=== PATIENT | female | born 1985 | race Caucasian/White ===

== ENCOUNTER 2019-02-06 13:41 | Emergency (ER) | payer BC ==
[2019-02-06] MEDS ORDERED: 0.9 % SODIUM CHLORIDE 1,000 ML BAG IV ONE (13:53)
--- NOTE | 2019-02-06 14:03 | Emergency Department Record ---
History of Present Illness - General Chief Complaint: Dizziness Stated Complaint: DIZZINESS Time Seen by Provider: 02/06/19 13:52 Source: Patient, Family Mode of Arrival: Ambulatory Limitations: No limitations - History of Present Illness Initial Comments: 33 yo female presents with episodes of feeling lightheaded and dizzy. The episodes occur sporadically. She will get episodes of feeling like she could pass out. The first episode two years ago occurred on the treadmill. She has had episodes at rest and driving. Episodes last seconds to several minutes. No actual syncope. She was seen in Dr Laura's office and Dr Crenshaw's office. No chest pain, no headache, no vision changes, no numbness, tingling, or weakness. No speech changes. No hearing changes. No chronic medical conditions. Today she had a similar feeling prior to a meeting of getting lightheaded and dizzy that lasted longer. She describes the feeling more like she fears passing out than a spinning sensation. MD Complaint: Dizziness, Lightheadedness -: Month(s) (2) Timing: Sudden onset Description: Lightheadedness History of Same: Yes History of Trauma: No Severity: Moderate Improves With: Nothing Worsens With: Movement, Position Associated Symptoms: Denies other symptoms - [place] Coma Scale Eye Response: (4) Open spontaneously Motor Response: (6) Obeys commands Verbal Response: (5) Oriented [place] Total: 15 - Related Data Allergies Allergy/AdvReac Type Severity Reaction Status Date / Time No Known Drug Allergies Allergy Verified 02/06/19 13:57 Review of Systems Constitutional: Denies: Chills, Fever, Malaise, Weakness Eyes: Denies: Eye discharge, Eye pain, Photophobia, Vision change ENT: Denies: Congestion, Throat pain Respiratory: Denies: Cough, Dyspnea Cardiovascular: Denies: Chest pain, Dyspnea on exertion, Edema, Palpitations, Syncope Endocrine: Denies: Fatigue Gastrointestinal: Denies: Abdominal pain, Diarrhea, Nausea, Vomiting Genitourinary: Denies: Dysuria Musculoskeletal: Denies: Myalgia Skin: Denies: Bruising, Change in color, Rash Neurological: Reports: Vertigo. Denies: Abnormal gait, Confusion, Headache, Numbness, Tingling, Tremors, Weakness Psychiatric: Denies: Anxiety Hematological/Lymphatic: Denies: Easy bleeding, Easy bruising Physical Exam - General General Appearance: Alert, Oriented x3, Cooperative, No acute distress Limitations: No limitations - Head Head exam: Atraumatic, Normocephalic, Normal inspection - Eye Eye exam: Normal appearance, PERRL. negative: Conjunctival injection, Scleral icterus - ENT ENT exam: Normal exam, Mucous membranes moist Ear exam: Normal external inspection Nasal Exam: Normal inspection Mouth exam: Normal external inspection Teeth exam: Normal inspection Throat exam: Normal inspection - Neck Neck exam: Normal inspection. negative: Lymphadenopathy, Tenderness, T hyromegaly - Respiratory Respiratory exam: Normal lung sounds bilaterally. negative: Accessory muscle use, Decreased breath sounds, Respiratory distress, Rhonchi, Stridor, Wheezes - Cardiovascular Cardiovascular Exam: Regular rate, Normal rhythm, Normal heart sounds. negative: Diastolic murmur, Irregular rhythm, Systolic murmur Peripheral Pulses: 2+: Radial (R), Radial (L) - GI/Abdominal GI/Abdominal exam: Soft - Rectal Rectal exam: Deferred - exam: Deferred - Extremities Extremities exam: Normal inspection. negative: Calf tenderness, Pedal edema - Back Back exam: Denies: CVA tenderness (R), CVA tenderness (L) - Neurological Neurological exam: Alert, Oriented X3 - Psychiatric Psychiatric exam: Normal affect, Normal mood - Skin Skin exam: Dry, Intact, Normal color, Warm Course - Reevaluation(s) Reevaluation #1: EKG #1: 13:53 Rate: 91 Rhythm: sinus Hayden: normal Intervals: normal ST segments: normal RSR' noted. Likely normal variant. No ST elevation or upright T waves in V1-V3 Prior: none The orthostatic vitals were reviewed No orthostasis EMR reviewed. BP on 01/25/19 was 132/82 02/06/19 14:34 No acute changes on the CBC or CMP The HCG is negative Magnesium is normal 02/06/19 16:30 The UA is negative The ECHO was performed No acute process or abnormality We discussed the results of the tests and questions were answered at the time of discharge. The patient is doing well and is comfortable with DC. DC vitals were reviewed. We discussed at length reasons to immediately return to the ED as well as close follow up. The patient will call the PCP for close follow up of this ED visit to review this visit and the tests performed Medical Decision Making - Lab Data Result diagrams: 02/06/19 14:05 02/06/19 14:05 Disposition Disposition: Discharge Clinical Impression: Near syncope Disposition: Home, Self-Care Condition: (1) Good Instructions: Dizziness (ED) Additional Instructions: Call your doctor for the next available follow up appointment Review this ER visit and the tests performed with your family doctor Return to the ER for a recheck if worse, any new concerns or questions Avoid the hot yoga and any intense work outs until seen by Dr Lal of Cardiology Referrals: CHASE LAL M.D. [MEDICAL DOCTOR] - Forms: Patient Portal Access Time of Disposition: 16:37 Quality - Quality Measures Quality Measures: N/A - Blood Pressure Screening Does Patient Have Any of the Following: No Blood Pressure Classification: Hypertensive Reading Systolic Measurement: 164 Diastolic Measurement: 106 Screening for High Blood Pressure: < Pre-Hypertensive BP, F/U Documented > [G8950] Pre-Hypertensive Follow-up Interventions: Referral to alternative/primary care provider.
[2019-02-06 14:13] LABS: ABSOLUTE NEUTROPHIL COUNT 3.78; BASO % 0.3 % (0-6); EOS % 1.8 % (0-6); GRAN % 53.7 % (47-80); HEMATOCRIT 38.9 % (35.0-47.0); HEMOGLOBIN 12.9 gm/dl (11.6-16.0); LYMPH % 37.4 % (16-45); MEAN CELL VOLUME 85.9 fl (81-97); MEAN CORPUSCULAR HEMOGLOBIN 28.5 pg (27-33); MEAN CORPUSCULAR HGB CONC 33.2 g/dl (32-36); MEAN PLATELET VOLUME 10.9 fl (7.4-10.4); MONO % 6.8 % (0-9); PLATELET COUNT 291 K/uL (130-400); RED BLOOD COUNT 4.53 M/uL (3.80-5.40); WHITE BLOOD COUNT W/O DIFF 7.1 K/uL (4.2-12.2)
[2019-02-06 14:27] LABS: BLOOD UREA NITROGEN 12 mg/dL (6-20); CREATININE 0.7 mg/dL (0.5-0.9); EST GLOMERULAR FILTRATION RATE > 60 mL/min
[2019-02-06 14:28] LABS: TOTAL PROTEIN 7.6 g/dL (6.6-8.7)
[2019-02-06 14:30] LABS: GLUCOSE,RANDOM 103 mg/dL (74-109)
[2019-02-06 14:33] LABS: ALB/GLOB RATIO 1.6 (1.1-1.8); ALBUMIN 4.7 g/dL (4.0-5.0); ALKALINE PHOSPHATASE 46 U/L (35-104); ALT/SGPT 12 U/L (<33); AST/SGOT 17 U/L (10.0-35.0)
[2019-02-06 14:51] LABS: URINE APPEARANCE CLEAR; URINE BILIRUBIN NEGATIVE (NEGATIVE); URINE BLOOD NEGATIVE (NEGATIVE); URINE COLOR YELLOW; URINE GLUCOSE (UA) NEGATIVE (NEGATIVE); URINE KETONE NEGATIVE (NEGATIVE); URINE LEUKOCYTE ESTERASE NEGATIVE (NEGATIVE); URINE NITRITE NEGATIVE (NEGATIVE); URINE PROTEIN NEGATIVE (NEGATIVE); URINE UROBILINOGEN 0.2 E.U./dL (0.20 - 1.00)
--- NOTE | 2019-02-07 04:56 | CT SCAN REPORT ---
EXAM: CT OF THE BRAIN WITHOUT CONTRAST HISTORY: NEAR SYNCOPE WHILE WALKING ON TREADMILL TODAY. TECHNIQUE: Routine noncontrast CT of the brain was obtained. Comparison: MRI of the brain without and with contrast dated 03/13/12. FINDINGS: The ventricles and subarachnoid spaces remain normal in size. No area of abnormally increased or decreased signal is noted throughout the brain substance. The martin white interfaces are distinct. No abnormal extraaxial fluid collection. There is mucosal thickening in a few left ethmoid air cells. There is also mild mucosal thickening within the right sphenoid sinus. The visualized paranasal sinuses and mastoid air cells are otherwise clear. The orbits as visualized are unremarkable. IMPRESSION: 1. NO INTRACRANIAL ABNORMALITY IDENTIFIED. 2. MUCOSAL THICKENING WITHIN SEVERAL LEFT ETHMOID AIR CELLS AND THE RIGHT SPHENOID SINUS. JOB NUMBER: [id number] [facility]
== END 2019-02-06 16:58 | disposition home or self-care (01) ==
LOC: ER 13:41
DX: R55 Syncope and collapse (principal); R42 Dizziness and giddiness
CPT/HCPCS: 70450; 80053; 81003; 83735; 84443; 84703; 85025; 93005; 93010; 93306; 99284; J7030